=== PATIENT | female | born 1960 | race Caucasian/White ===

== ENCOUNTER 2018-06-21 09:33 | Emergency (ER) | payer MEDICAID ==
[~2018-06-21] VITALS: Ht 182.9 cm; Wt 101.4 kg
[2018-06-21] MEDS ORDERED: MORPHINE SULFATE 4 MG/ML, 1ML ONE (10:40)
[2018-06-21] MEDS ORDERED: ONDANSETRON 2MG/ML, 2ML ONE (10:40)
[2018-06-21] MEDS ORDERED: SODIUM CHLORIDE FLUSH 10ML SYR IVF ONE (11:00)
[2018-06-21] MEDS ORDERED: MORPHINE SULFATE 4 MG/ML, 1ML IVPush PRN (11:00)
[2018-06-21] MEDS ORDERED: ONDANSETRON 2MG/ML, 2ML IVPush ONE (11:00)
--- NOTE | 2018-06-21 12:20 | NUR ---
REPORT RECEIVED FROM EVELIO GARCIA. SPLINT PLACED BY EDT, SLING PLACED. CMS INTACT S/P SPLINT AND SLING. PT REPORTS PAIN LEVEL 6/10 AT TIME OF DISCHARGE. PT A&O, RESPS EVEN AND UNLABORED. PIV DC'D WITH TIP INTACT. PT GIVEN DC INSTRUCTIONS AND SCRIPT, EDUCATED REGARDING [place]CO RX. PT EDUCATED NOT TO DRIVE D/T MED GIVEN, VERBALIZES UNDERSTANDING. PT AMB TO DC DESK WITH STEADY GAIT ACCOMPANIED BY FAMILY, NADN AT DC.
[2018-06-21 12:31] VITALS: BP 112/66
== END 2018-06-21 12:38 | disposition home or self-care (01) ==
LOC: ED 12:14
DX: S52.501A Unspecified fracture of the lower end of right radius, initial encounter for closed fracture (principal); S52.614A Nondisplaced fracture of right ulna styloid process, initial encounter for closed fracture; E03.9 Hypothyroidism, unspecified; W01.0XXA Fall on same level from slipping, tripping and stumbling without subsequent striking against object, initial encounter; Y93.89 Activity, other specified; Y92.009 Unspecified place in unspecified non-institutional (private) residence as the place of occurrence of the external cause; Y99.8 Other external cause status
CPT/HCPCS: 29125; 73110; 96374; 96375; 99283; J2405

== ENCOUNTER 2018-06-23 23:43 | Emergency (ER) | payer MEDICAID ==
[~2018-06-23] VITALS: Ht 182.9 cm; Wt 103.5 kg
[2018-06-23 23:45] VITALS: BP 144/88
--- NOTE | 2018-06-23 23:51 | NUR ---
PT IS IN TRIAGE 2 PA DAVID IS CHECKING
[2018-06-24] MEDS ORDERED: HYDROcodone/APAP 5/325 TABLET ONE (00:47)
[2018-06-24] MEDS ORDERED: HYDROcodone/APAP 5/325 TABLET PO ONE (01:00)
== END 2018-06-24 01:17 | disposition home or self-care (01) ==
LOC: ED 06-24 00:26
DX: S52.501A Unspecified fracture of the lower end of right radius, initial encounter for closed fracture (principal); W19.XXXA Unspecified fall, initial encounter; Y93.89 Activity, other specified; Y92.009 Unspecified place in unspecified non-institutional (private) residence as the place of occurrence of the external cause; Y99.8 Other external cause status
CPT/HCPCS: 29125; 99283